=== PATIENT | female | born 1990 | race Caucasian/White ===

== ENCOUNTER 2018-11-03 19:53 | Emergency (ER) | payer SELFPAY ==
[2018-11-03] MEDS ORDERED: ONDANSETRON HCL 4 MG TAB.RAPDIS PO ONE (20:05)
--- NOTE | 2018-11-03 20:08 | ED Physician Documentation ---
General Adult - HISTORIAN Historian: patient (states she is about 6 weeks and is nausated. She states she has not had any vomiting since last night. mild left ear pain. No other complaints. ) - HPI Stated Complaint: nausea Chief Complaint: Nausea,Vomiting,Diarrhea Onset: days ago (2) Timing: better Further Comments: yes (she reports she is about 6 weeks ) - ROS CONST: no problems GI/: vomiting, nausea. denies: diarrhea MS/SKIN/LYMPH: none - PAST HX Past History: none Other History: none Surgeries/Procedures: none Immunizations: UTD Allergies/Adverse Reactions: Allergies Allergy/AdvReac Type Severity Reaction Status Date / Time morphine Allergy Intermediate Anaphylaxis Verified 11/03/18 20:04 Penicillins Allergy Intermediate Rash Verified 11/03/18 20:04 - SOCIAL HX Smoking History: cigarettes Alcohol Use: none Drug Use: none - FAMILY HX Family History: No - REVIEWED ASSESSMENTS Nursing Assessment Reviewed: Yes Vitals Reviewed: Yes ED Results Lab/Radiology - Orders Orders: ED Orders Category Date Time Status Ondansetron HCl Rapdis [Zofran Odt] Med 11/03/18 20:05 Once 4 mg PO NOW ONE General Adult Physical Exam - PHYSICAL EXAM GENERAL APPEARANCE: no distress EENT: eye inspection normal, no signs of dehydration NECK: normal inspection RESPIRATORY: no resp distress, chest non-tender, breath sounds normal CVS: reg rate & rhythm, heart sounds normal ABDOMEN: soft, normal bowel sounds, no distension, non-tender BACK: normal inspection, no CVA tenderness SKIN: warm/dry, normal color EXTREMITIES: non-tender NEURO: oriented X3 Discharge Clincal Impression: Nausea/vomiting in Referrals: Primary Doctor,No [Primary Care Provider] - 2 Days Comments: 1. Zofran 4 mg take 1 by mouth every 12 hours as needed for nausea 2. increase fluids 3. [place] diet 4. contact OBGYN for appt 5. return to ER for any concerns Condition: Stable Disposition: 01 HOME, SELF-CARE Decision to Admit: NO Date of Decison to Admit: 11/03/18 Decision Time: 20:08
[2018-11-03 20:11] VITALS: BP 131/78
== END 2018-11-03 20:17 | disposition home or self-care (01) ==
LOC: ED 19:53
DX: O21.9 Vomiting of pregnancy, unspecified (principal); Z3A.01 Less than 8 weeks gestation of pregnancy
CPT/HCPCS: 99283; A9270